=== PATIENT | female | born 1990 | race Caucasian/White ===

== ENCOUNTER 2016-09-20 18:28 | Emergency (ER) | payer BC ==
[2016-09-20] MEDS ORDERED: IV NORMAL SALINE 1,000ML 1,000 ML IV SCH (18:56)
[2016-09-20] MEDS ORDERED: 0.9 % SODIUM CHLORIDE 10 ML DISP.SYRIN. IV PRN (19:00)
[2016-09-20] MEDS ORDERED: ONDANSETRON PF 4 MG/2 ML VIAL. IV ONE (19:00)
[2016-09-20] MEDS ORDERED: HYDROmorphone PF 1 MG/ML DISP.SYRIN IV/SQ PRN (19:00)
--- NOTE | 2016-09-20 19:11 | PHYS DOC ---
Past History Additional Past Medical Histor: recurrent UTIs Past Surgical History: Cholecystectomy Smoking: Non-smoker Alcohol Use: Occasionally Drug Use: None Adult General Chief Complaint Chief Complaint: ABDOMINAL PAIN [facility] HPI This is a pleasant 26-year-old female G4 P 3013 who is 3 weeks by last menstrual period presenting with right lower quadrant right flank pain that began 2 days ago. Patient was in her normal state of health when she began having some crampy fullness in the right lower quadrant of abdomen described as a pressure with radiation from the flank to the lower groin. She has had a history of UTIs are currently since she was a child has had prior cystoscopy as well as IVP evaluations in the past. Her last UTI was several months ago. She has on no antibiotics at this time. She describes the pain as crampy about a 5- 10 with no change with bowel movements. She thought she was constipated and attempted to take lyic-ktv-vacrkif MiraLAX to help with her symptoms but that improved. She's had low-grade subjective fevers chills and decreased appetite. Patient also admits to no trauma no falls or sick contacts. Patient's pain is different in that she has no dysuria urgency or frequency but she said the pain is now radiating to the lower back on the right side. After doing some research she is worried she might have appendicitis versus a kidney infection. Pain presently is a 7 of 10 she's been nauseated but has not vomited. Review of Systems Review of Systems Constitutional: As the complaint of fevers and chills Eyes: Denies change in visual acuity, redness, or eye pain [] HENT: Denies nasal congestion or sore throat [] Respiratory: Denies cough or shortness of breath [] Cardiovascular: No additional information not addressed in HPI [] GI: As the complaint of abdominal pain with nausea without vomiting bloody stools or diarrhea [] : Denies dysuria or hematuria [] Musculoskeletal: As the complaint of lower back pain on the right Integument: Denies rash or skin lesions [] Neurologic: Denies headache, focal weakness or sensory changes [] Endocrine: Denies polyuria or polydipsia [] Current Medications Current Medications Current Medications Medications (Trade) Dose Ordered Sig/Amanuel Start Time Stop Time Status Last Admin Dose Admin Hydromorphone HCl (Dilaudid) 1 mg PRN Q15MIN PRN 09/20/16 19:00 09/21/16 18:59 Info (Do NOT chart on this entry -- for MONITORING) 1 each PRN DAILY PRN 09/20/16 19:15 09/22/16 19:14 Iohexol (Omnipaque 300 Mg/ml) 75 ml 1X ONCE 09/20/16 19:15 09/20/16 19:16 Ondansetron HCl (Zofran) 4 mg 1X ONCE 09/20/16 19:00 09/20/16 19:07 DC Sodium Chloride (Normal Saline Flush) 10 ml QSHIFT PRN 09/20/16 19:00 Allergies Allergies Allergies Coded Allergies Type Severity Reaction Last Updated Verified amoxicillin Allergy Unknown 09/20/16 Yes doxycycline Allergy Unknown 09/20/16 Yes sumatriptan Allergy Unknown 09/20/16 Yes Physical Exam Physical Exam Constitutional: Well developed, well nourished, patient uncomfortable but in no acute distress HENT: Normocephalic, atraumatic, bilateral external ears normal, oropharynx moist, no oral exudates, nose normal. [] Eyes: PERRLA, EOMI, conjunctiva normal, no discharge. [] Neck: Normal range of motion, no tenderness, supple, no stridor. [] Cardiovascular:Heart rate regular rhythm, no murmur [] Lungs & Thorax: Bilateral breath sounds clear to auscultation [] Abdomen: Bowel sounds present tenderness in the right lower quadrant with mild McBurney's point tenderness to palpation negative 's no Almaraz Greco sign no focal tenderness to the epigastrium or the left lower quadrant. Skin: Warm, dry, no erythema, no rash. [] Back: No tenderness, mild CVA tenderness on the right Extremities: No tenderness, no cyanosis, no clubbing, ROM intact, no edema. [] Neurologic: Alert and oriented X 3, normal motor function, normal sensory function, no focal deficits noted. [] Psychologic: Affect normal, judgement normal, mood normal. [] Current Patient Data Vital Signs Vital Sign - Last 24 Hours 09/20/16 19:47 Resp 20 Pulse Ox 98 O2 Delivery Room Air Lab Results Laboratory Tests Test 09/20/16 18:55 09/20/16 19:10 09/20/16 19:15 Urine Collection Type Unknown Urine Color Yellow Urine Clarity Turbid Urine pH 8.0 Urine Specific [place] 1.020 Urine Protein >100 mg/dl (NEG-TRACE) Urine Glucose (UA) Neg mg/dL (NEG) Urine Ketones (Stick) Neg mg/dL (NEG) Urine Blood Large (NEG) Urine Nitrite Neg (NEG) Urine Bilirubin Neg (NEG) Urine Urobilinogen Dipstick 0.2 mg/dL (0.2 mg/dL) Urine Leukocyte Esterase Large (NEG) Urine RBC 6-10 /HPF (0-2) Urine WBC >40 /HPF (0-4) Urine Squamous Epithelial Cells Mod /LPF Urine Bacteria Few /HPF (0-FEW) White Blood Count 11.0 x10^3/uL (4.0-11.0) Red Blood Count 4.73 x10^6/uL (3.50-5.40) Hemoglobin 13.2 g/dL (12.0-15.5) Hematocrit 39.5 % (36.0-47.0) Mean Corpuscular Volume 84 fL (79-100) Mean Corpuscular Hemoglobin 28 pg (25-35) Mean Corpuscular Hemoglobin Concent 33 g/dL (31-37) Red Cell Distribution Width 13.8 % (11.5-14.5) Platelet Count 179 x10^3/uL (140-400) Neutrophils (%) (Auto) 75 % (31-73) H Lymphocytes (%) (Auto) 17 % (24-48) L Monocytes (%) (Auto) 8 % (0-9) Eosinophils (%) (Auto) 0 % (0-3) Basophils (%) (Auto) 0 % (0-3) Neutrophils # (Auto) 8.3 x10^3uL (1.8-7.7) H Lymphocytes # (Auto) 1.9 x10^3/uL (1.0-4.8) Monocytes # (Auto) 0.8 x10^3/uL (0.0-1.1) Eosinophils # (Auto) 0.0 x10^3/uL (0.0-0.7) Basophils # (Auto) 0.0 x10^3/uL (0.0-0.2) Sodium Level 143 mmol/L (136-145) Potassium Level 3.5 mmol/L (3.5-5.1) Chloride Level 104 mmol/L (98-107) Carbon Dioxide Level 29 mmol/L (21-32) Anion Gap 10 (6-14) Blood Urea Nitrogen 14 mg/dL (7-20) Creatinine 0.9 mg/dL (0.6-1.0) Estimated GFR (Cockcroft-Gault) 74.6 BUN/Creatinine Ratio 16 (6-20) Glucose Level 80 mg/dL (70-99) Calcium Level 8.4 mg/dL (8.5-10.1) L Total Bilirubin 0.2 mg/dL (0.2-1.0) Aspartate Amino Transferase (AST) 12 U/L (15-37) L Alanine Aminotransferase (ALT) 14 U/L (14-59) Alkaline Phosphatase 42 U/L (46-116) L Total Protein 7.7 g/dL (6.4-8.2) Albumin 3.7 g/dL (3.4-5.0) Albumin/Globulin Ratio 0.9 (1.0-1.7) L Lipase 117 U/L (73-393) POC Urine HCG, Qualitative hcg negative (Negative) EKG EKG [] Radiology/Procedures Radiology/Procedures [] [address] [place] [id number] IMAGING REPORT Signed PATIENT: SLICK GUARDADO ACCOUNT: [id number] : 1990 LOCATION: ER AGE: 26 SEX: F EXAM STATUS: REG ER ORD. PHYSICIAN: GARCIA DELGADILLO MD REASON: right lower quadrant abdominal pain PROCEDURE: CT ABD PELV W/ IV CONTRST ONLY CT abdomen and pelvis with contrast History: Right lower quadrant abdomen pain, constipation x 2 days. Hx: Cholecystectomy. Contrast: 75 cc Omnipaque 300. Technique: After the administration of intravenous contrast, CT imaging was performed of the abdomen and pelvis. No oral contrast was given as per request. Multiplanar images are reviewed. Exposure: One or more of the following individualized dose reduction techniques were utilized for this examination: 1. Automated exposure control 2. Adjustment of the mA and/or kV according to patient size 3. Use of iterative reconstruction technique. Comparison: None Findings: There is no significant abnormality of the visualized lung bases. There is no significant abnormality of the liver, spleen, pancreas, adrenal glands. Both kidneys enhance without hydronephrosis. There has been cholecystectomy. Accurate evaluation of bowel is limited without oral contrast. No free air is identified. There is retained stool greatest of the right and transverse colon. Small bowel is not considered significantly dilated. There is IUD present. Normal caliber appendix is visualized without adjacent inflammatory-type change, mild hyperdensity in the lumen more likely due to hyperdense stool than appendicolith. There are 2 hypodense foci with peripheral enhancement of the right adnexal region, one of 2 cm and the other up to 1.9 cm in size. This is adjacent to other likely mild free fluid or cyst, also mild dependent free fluid more eccentric in the dependent right pelvis. There is also some wall enhancement of adjacent small bowel in the more central pelvis. There is mild wall prominence of the urinary bladder. Impression: 1. There is no CT evidence of acute appendicitis. 2. There are 2 foci of abnormal hypodensity with peripheral enhancement of the right adnexal region. These could be due to partially collapsed or involuting cysts unless suspicion for tubo-ovarian abscesses, adjacent mild free fluid extending posteriorly into the right pelvis. There is also some relative enhancement of adjacent small bowel torres in the more central pelvis. Underlying pelvic inflammatory disease would be in the differential possibilities. There is also mild prominence of the torres of the urinary bladder, nonspecific and could be related to incomplete distention unless suspicion for cystitis. 3. There is retained stool greatest of the right colon. Electronically signed by: Pepe Narayanan MD (09/20/2016 7:46 PM) DICTATED AND SIGNED BY: PEPE NARAYANAN MD DATE: 09/20/161937 CC: GARCIA DELGADILLO MD; VITALY MORA MD ~ Course & Med Decision Making Course & Med Decision Making Pertinent Labs and Imaging studies reviewed. (See chart for details). Nursing notes, vital signs, laboratory work as well as history and physical on secondary physical exam patient feels markedly improved we discussed possible diagnosis of UTI versus subclinical pyelonephritis given subjective fevers and flank pain. CT scan does not show any definite signs of appendicitis, small bowel section, diverticulitis, there is a small ovarian cyst there is no history consistent with PID or to ovarian abscess no history of sexual transmitted diseases in the past no discharge. Patient has had no pelvic pain or trauma. I would advise follow-up with her care physician with referral to your return checker to continue to evaluate her structure as this may be continuing to cause problems in the future. At this juncture I will place her on antibiotics a fluoroquinolone along with Pyridium pain medications nausea medications and close follow-up. Impression: UTI, subclinical pyelonephritis, ovarian cyst cyst, abdominal pain objective fever. Disposition: Discharged with appropriate antibiotics and supportive medications PCP follow-up in 4872 hours. [] Dragon Disclaimer Dragon Disclaimer This chart was dictated in whole or in part using Voice Recognition software in a busy, high-work load, and often noisy Emergency Department environment. It may contain unintended and wholly unrecognized errors or omissions. Departure Departure: Impression: Primary Impression: Abdominal pain Additional Impressions: Ovarian cyst Urinary tract infection Disposition: HOME, SELF-CARE Condition: IMPROVED Referrals: VITALY MORA MD (PCP) Patient Instructions: Abdominal Pain (Nonspecific), Ovarian Cyst, Urinary Tract Infection Additional Instructions: This return for any new or increasing symptoms, or if you have any questions or concerns. I would advise that you follow-up with her primary care doctor in the next 12-24 hours if symptoms continue despite treatment. There is no evidence evidence of appendicitis at this time but this is a disease that can develop at any time Soviet localized pain in the right lower quadrant continued fevers and chills please return for reevaluation. Scripts Ondansetron (ZOFRAN ODT) 8 Mg Tab.rapdis 8 MG PO BID for 5 Days Prov: GARCIA DELGADILLO MD 09/20/16 Phenazopyridine Hcl (PYRIDIUM) 200 Mg Tablet 200 MG PO TID for 5 Days, #15 TAB Prov: GARCIA DELGADILLO MD 09/20/16 Hydrocodone Bit/Acetaminophen (HYDROCODONE-APAP 5-325 ) 1 Each Tablet 1 TAB PO PRN Q6HRS Y for PAIN for 5 Days, #12 TAB 0 Refills Prov: GARCIA DELGADILLO MD 09/20/16 Nitrofurantoin Monohyd/M-Cryst (MACROBID 100 MG CAPSULE) 100 Mg Capsule 1 CAP PO BID, #20 CAP Prov: GARCIA DELGADILLO MD 09/20/16 Problem Qualifiers GARCIA DELGADILLO MD September 20, 2016 19:11
[2016-09-20] MEDS ORDERED: CONTRAST GIVEN MC PRN (19:15)
[2016-09-20] MEDS ORDERED: IOHEXOL 300 MG/ML 75 ML VIAL. IV ONE (19:15)
[2016-09-20 19:33] LABS: BASO % 0 % (0-3); EOS % 0 % (0-3); HEMATOCRIT 39.5 % (36.0-47.0); HEMOGLOBIN 13.2 g/dL (12.0-15.5); LYMPH # 1.9 x10^3/uL (1.0-4.8); LYMPH % 17 % (24-48); MEAN CORPUSCULAR HEMOGLOBIN 28 pg (25-35); MEAN CORPUSCULAR HGB CONC 33 g/dL (31-37); MEAN CORPUSCULAR VOLUME 84 fL (79-100); MONO # 0.8 x10^3/uL (0.0-1.1); MONO % 8 % (0-9); NEUT # 8.3 x10^3uL (1.8-7.7); NEUT % 75 % (31-73); PLATELET COUNT 179 x10^3/uL (140-400); RED BLOOD COUNT 4.73 x10^6/uL (3.50-5.40); RED CELL DISTRIBUTION WIDTH 13.8 % (11.5-14.5)
[2016-09-20 19:41] LABS: BILIRUBIN,URINE NEG (NEG); CLARITY,URINE TURBID; COLOR,URINE YELLOW; GLUCOSE,URINE NEG (NEG); NITRITE,URINE NEG (NEG); UROBILINOGEN,URINE 0.2 mg/dL (0.2 mg/dL)
[2016-09-20 19:43] LABS: BACTERIA,URINE FEW /HPF (0-FEW); SQUAMOUS EPITHELIAL CELL,UR MOD /LPF; WBC,URINE >40 /HPF (0-4)
[2016-09-20 19:45] LABS: ALBUMIN 3.7 g/dL (3.4-5.0); ALBUMIN/GLOBULIN RATIO 0.9 (1.0-1.7); CALCIUM 8.4 mg/dL (8.5-10.1); CREATININE 0.9 mg/dL (0.6-1.0); GFR 74.6; POTASSIUM 3.5 mmol/L (3.5-5.1); TOTAL BILIRUBIN 0.2 mg/dL (0.2-1.0); TOTAL PROTEIN 7.7 g/dL (6.4-8.2)
--- NOTE | 2016-09-20 19:49 | RAD ---
CT abdomen and pelvis with contrast History: Right lower quadrant abdomen pain, constipation x 2 days. Hx: Cholecystectomy. Contrast: 75 cc Omnipaque 300. Technique: After the administration of intravenous contrast, CT imaging was performed of the abdomen and pelvis. No oral contrast was given as per request. Multiplanar images are reviewed. Exposure: One or more of the following individualized dose reduction techniques were utilized for this examination: 1. Automated exposure control 2. Adjustment of the mA and/or kV according to patient size 3. Use of iterative reconstruction technique. Comparison: None Findings: There is no significant abnormality of the visualized lung bases. There is no significant abnormality of the liver, spleen, pancreas, adrenal glands. Both kidneys enhance without hydronephrosis. There has been cholecystectomy. Accurate evaluation of bowel is limited without oral contrast. No free air is identified. There is retained stool greatest of the right and transverse colon. Small bowel is not considered significantly dilated. There is IUD present. Normal caliber appendix is visualized without adjacent inflammatory-type change, mild hyperdensity in the lumen more likely due to hyperdense stool than appendicolith. There are 2 hypodense foci with peripheral enhancement of the right adnexal region, one of 2 cm and the other up to 1.9 cm in size. This is adjacent to other likely mild free fluid or cyst, also mild dependent free fluid more eccentric in the dependent right pelvis. There is also some wall enhancement of adjacent small bowel in the more central pelvis. There is mild wall prominence of the urinary bladder. Impression: 1. There is no CT evidence of acute appendicitis. 2. There are 2 foci of abnormal hypodensity with peripheral enhancement of the right adnexal region. These could be due to partially collapsed or involuting cysts unless suspicion for tubo-ovarian abscesses, adjacent mild free fluid extending posteriorly into the right pelvis. There is also some relative enhancement of adjacent small bowel torres in the more central pelvis. Underlying pelvic inflammatory disease would be in the differential possibilities. There is also mild prominence of the torres of the urinary bladder, nonspecific and could be related to incomplete distention unless suspicion for cystitis. 3. There is retained stool greatest of the right colon. Electronically signed by: Pio Wren MD (09/20/2016 7:46 PM)
[2016-09-20] MEDS ORDERED: PHEN-318 PO (20:02)
[2016-09-20] MEDS ORDERED: ONDA8TAB12 PO (20:02)
[2016-09-20] MEDS ORDERED: HYDR-2758 PO (20:02)
[2016-09-20] MEDS ORDERED: NITR100C62 PO (20:02)
[2016-09-20] MEDS ORDERED: NITROFURANTOIN MONOHYD/M-CRYST 100 MG CAPSULE. PO ONE ×2 (20:09→20:15)
[2016-09-20 20:17] VITALS: BP 112/57
== END 2016-09-20 20:17 | disposition home or self-care (01) ==
LOC: ER 18:28
DX: N83.201 Unspecified ovarian cyst, right side (principal); N39.0 Urinary tract infection, site not specified; N12 Tubulo-interstitial nephritis, not specified as acute or chronic; Z88.1 Allergy status to other antibiotic agents; Z87.440 Personal history of urinary (tract) infections
CPT/HCPCS: 36415; 74177; 80053; 81001; 83690; 84703; 85027; 87086; 96374; 96375; 99285; J1170; J2405; Q9967; 81025; J7030

== ENCOUNTER 2016-09-20 21:06 | Emergency (ER) | payer BC ==
[~2016-09-20 21:06] MED LIST: HYDR-2758 PO; NITR100C62 PO; ONDA8TAB12 PO; PHEN-318 PO
[2016-09-20] MEDS ORDERED: IV NORMAL SALINE 1,000ML 1,000 ML IV SCH (21:07)
[2016-09-20] MEDS: HYDROmorphone PF 1 MG/ML DISP.SYRIN IV/SQ PRN ×2 (21:15→23:45)
[2016-09-20] MEDS ORDERED: 0.9 % SODIUM CHLORIDE 10 ML DISP.SYRIN. IV PRN (21:15)
[2016-09-20] MEDS ORDERED: ONDANSETRON PF 4 MG/2 ML VIAL. IV ONE (21:30)
[2016-09-20] MEDS ORDERED: LORazepam 2 MG/ML VIAL IV ONE (21:30)
--- NOTE | 2016-09-20 21:31 | PHYS DOC ---
Past History Past Medical History: UTI, Other Additional Past Medical Histor: recurrent UTIs Past Surgical History: Cholecystectomy Smoking: Non-smoker Alcohol Use: Occasionally Drug Use: None Adult General Chief Complaint Chief Complaint: abdominal pain [facility] HPI Patient is a pleasant 26-year-old female who was just in our department no more than about an hour ago for an evaluation of right lower quadrant right flank abdominal pain. During her evaluation is determined that she has a small ovarian cyst on the right side some mildly fluid in the abdomen and likely a cystitis. There is no obvious evidence of appendicitis, bowel perforation, bowel obstruction, kidney stone with hydronephrosis or diverticulitis. Patient was feeling markedly better upon release from the emergency department did call about 10 minutes prior to arrival telling us that her pain had increased and localized to the right flank. I asked him to return to ensure that we could evaluate her cyst to ensure that she did not have ovarian torsion. Pain did come in waves described as sharp and stabbing with radiation to the right lower quadrant as before. 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 Pain is presently in 8 of 10. Review of Systems Review of Systems Constitutional: Denies fever or chills [] Eyes: Denies change in visual acuity, redness, or eye pain [] HENT: Denies nasal congestion or sore throat [] Respiratory: Denies cough or shortness of breath [] Cardiovascular: No additional information not addressed in HPI [] GI: Major complaint of abdominal pain with nausea localized to the right lower quadrant : Denies dysuria or hematuria [] Musculoskeletal: Denies back pain or joint pain [] Integument: Denies rash or skin lesions [] Neurologic: Denies headache, focal weakness or sensory changes [] Endocrine: Denies polyuria or polydipsia [] Allergies Allergies Allergies Coded Allergies Type Severity Reaction Last Updated Verified amoxicillin Allergy Unknown 09/20/16 Yes doxycycline Allergy Unknown 09/20/16 Yes naproxen Allergy Unknown 09/20/16 Yes sumatriptan Allergy Unknown 09/20/16 Yes Physical Exam Physical Exam Constitutional: Well developed, well nourished, he is very anxious but nontoxic patient crying HENT: Normocephalic, atraumatic, bilateral external ears normal, oropharynx moist, no oral exudates, nose normal. [] Eyes: PERRLA, EOMI, conjunctiva normal, no discharge. [] Neck: Normal range of motion, no tenderness, supple, no stridor. [] Cardiovascular:Heart rate regular rhythm, no murmur [] Lungs & Thorax: Bilateral breath sounds clear to auscultation [] Abdomen: Tender still on right flank right lower quadrant as beforehand. There is voluntary guarding without rebound or organomegaly. There is no 's sign and examined is no Almaraz Greco's sign. Skin: Warm, dry, no erythema, no rash. [] Back: No tenderness, no CVA tenderness. [] Extremities: No tenderness, no cyanosis, no clubbing, ROM intact, no edema. [] Neurologic: Alert and oriented X 3, normal motor function, normal sensory function, no focal deficits noted. [] Psychologic: She is upset and anxious secondary to pain. EKG EKG [] Radiology/Procedures Radiology/Procedures [] Signed PATIENT: SLICK GUARDADO ACCOUNT: [id number] : 1990 LOCATION: ER AGE: 26 SEX: F EXAM STATUS: REG ER ORD. PHYSICIAN: GARCIA DELGADILLO MD REASON: rule out ovarian torsion PROCEDURE: US PELVIS W/TV Pelvic and transvaginal ultrasound HISTORY: Rule out ovarian torsion, sharp pelvic pain COMPARISON: None FINDINGS: Multiple transabdominal sonographic images of the pelvis are submitted. Right ovary is estimated at 3.4 x 2.7 x 2.8 cm, normal color flow. Left ovary measured 2.3 x 2.8 x 2.2 cm with normal color flow. There is IUD present. 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 Superior margin of the IUD appears more distally located than typically seen although on CT performed the same time, does not go past the uterine wall. Transvaginal ultrasound: Multiple transvaginal sonographic images of the pelvis are submitted. There is an IUD, apparently some mild fluid along left aspect of the IUD and tip of the IUD somewhat more distally seen than typically expected although does not appear to traverse the uterine wall. There is moderate quantity of free fluid in the right adnexal region. There is a focus of hypoechogenicity of the right uterus measuring in maximal dimension up to 1.5 cm with the internal echoes present. There is another focus of hypoechogenicity of the right ovary with internal echoes also on the order of 1.5 cm. There is normal color-flow of the right ovary. There is normal color flow of the left ovary, few small follicles present. IMPRESSION: 1. There is IUD in retroverted, septate uterus, mild fluid along the left aspect of the IUD. Tip of the IUD is located closer to the uterine fundus than typically seen although does not appear to traverse the uterine wall. 2. There is moderate free fluid in the right adnexal region, a couple of foci of hypoechogenicity with internal echoes which may be due to partially collapsed cysts. Electronically signed by: Pepe Narayanan MD (09/20/2016 11:11 PM) DICTATED AND SIGNED BY: PEPE NARAYANAN MD DATE: 09/20/167 CC: GARCIA DELGADILLO MD; VITALY MORA MD ~ Course & Med Decision Making Course & Med Decision Making Pertinent Labs and Imaging studies reviewed. (See chart for details) I have reviewed patient's chart, patient's nursing notes, patient H&H and vital signs all within reasonable limits again identified UTI with ovarian cyst on the right that is partially collapsed likely causing little hemorrhage in the abdomen with moderate free fluid noted patient is been hemolyticus table pain is well-controlled IV medications on her ultrasound that she does not have torsion and good blood flow to both ovaries at this time patient does not demonstrate signs of an ectopic . 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 At this point patient given report about findings will need to follow-up with her [employer]. It is likely that she may need to have the IUD removed and a repeat H&H and repeat ultrasound if her abdominal pain continues. Patient and family were offered admission to the hospital for IV narcotics and fluids but family elected to go home with follow-up tomorrow with the primary care doctor. : Impression: Abdominal pain, ovarian cyst, UTI, bicornate uterus Disposition PCP follow-up 24 hours. Precautions given [] Dragon Disclaimer Dragon Disclaimer This chart was dictated in whole or in part using Voice Recognition software in a busy, high-work load, and often noisy Emergency Department environment. It may contain unintended and wholly unrecognized errors or omissions. Departure Departure: Impression: Primary Impression: Abdominal pain Additional Impression: Ovarian cyst Disposition: 01 HOME, SELF-CARE Condition: IMPROVED Referrals: VITALY MORA MD (PCP) Patient Instructions: Abdominal Pain, Ovarian Cyst Additional Instructions: This follow-up with her [employer] or PCP in the morning especially if symptoms continue. Advise that she return here immediately for admission to the hospital if her pain is increased. If you feel any fever, lightheaded dizziness, or other symptoms that are concerning to you. Problem Qualifiers GARCIA DELGADILLO MD September 20, 2016 21:31
--- NOTE | 2016-09-20 23:13 | RAD ---
Pelvic and transvaginal ultrasound HISTORY: Rule out ovarian torsion, sharp pelvic pain COMPARISON: None FINDINGS: Multiple transabdominal sonographic images of the pelvis are submitted. Right ovary is estimated at 3.4 x 2.7 x 2.8 cm, normal color flow. Left ovary measured 2.3 x 2.8 x 2.2 cm with normal color flow. There is IUD present. 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 Superior margin of the IUD appears more distally located than typically seen although on CT performed the same time, does not go past the uterine wall. Transvaginal ultrasound: Multiple transvaginal sonographic images of the pelvis are submitted. There is an IUD, apparently some mild fluid along left aspect of the IUD and tip of the IUD somewhat more distally seen than typically expected although does not appear to traverse the uterine wall. There is moderate quantity of free fluid in the right adnexal region. There is a focus of hypoechogenicity of the right uterus measuring in maximal dimension up to 1.5 cm with the internal echoes present. There is another focus of hypoechogenicity of the right ovary with internal echoes also on the order of 1.5 cm. There is normal color-flow of the right ovary. There is normal color flow of the left ovary, few small follicles present. IMPRESSION: 1. There is IUD in retroverted, septate uterus, mild fluid along the left aspect of the IUD. Tip of the IUD is located closer to the uterine fundus than typically seen although does not appear to traverse the uterine wall. 2. There is moderate free fluid in the right adnexal region, a couple of foci of hypoechogenicity with internal echoes which may be due to partially collapsed cysts. Electronically signed by: Pio Wren MD (09/20/2016 11:11 PM)
[2016-09-20 23:43] VITALS: BP 121/71
== END 2016-09-20 23:47 | disposition home or self-care (01) ==
LOC: ER 21:06
DX: N83.201 Unspecified ovarian cyst, right side (principal); N39.0 Urinary tract infection, site not specified; Z90.49 Acquired absence of other specified parts of digestive tract; Z88.1 Allergy status to other antibiotic agents; Z88.6 Allergy status to analgesic agent
CPT/HCPCS: 76830; 76856; 96361; 96374; 96375; 96376; 99284; J1170; J2060; J2405; J7030

== ENCOUNTER → 2019-01-09 | Outpatient (CLI) | payer BC ==
[~2019-01-09] MED LIST changes: +HYDR-2155 PO; -HYDR-2758 PO
--- NOTE | 2019-01-09 16:59 | RAD ---
RENAL COMPLETE BILATERAL History: Urinary tract infection, family history of bladder cancer Comparison: None. Findings: Multiple sonographic images of the kidneys and retroperitoneal structures are submitted. Right kidney measured 10.6 x 6.1 x 3.6 cm. Left kidney measured 11.3 x 4.5 x 5.8 cm. There is no hydronephrosis of either kidney. Abdominal aortic caliber is within normal limits up to 1.9 cm. There is segmental visualization of the inferior vena cava. Urinary bladder morphology is within normal limits, ureteral jets seen bilaterally. Estimated urinary bladder volume was 45 mL. Impression: 1. No significant abnormality is demonstrated. Electronically signed by: Pio Wren MD (01/09/2019 4:55 PM) [facility]
== END | disposition home or self-care (01) ==
LOC: US 12:01
PROVIDERS: ATTEND Family Medicine
DX: N39.0 Urinary tract infection, site not specified (principal)
CPT/HCPCS: 76770

== ENCOUNTER 2020-04-09 18:23 | Emergency (ER) | payer BC ==
[~2020-04-09] VITALS: Ht 165.1 cm; Wt 64.2 kg
[2020-04-09 19:10] VITALS: BP 120/72
[2020-04-09] MEDS ORDERED: IV NORMAL SALINE 1,000ML 1,000 ML IV ONE (19:15)
[2020-04-09] MEDS ORDERED: IOHEXOL 300 MG/ML 75 ML VIAL. IV ONE (19:30)
[2020-04-09 19:45] LABS: BASO % 0 % (0-3); EOS # 0.2 x10^3/uL (0.0-0.7); EOS % 2 % (0-3); HEMOGLOBIN 12.6 g/dL (12.0-15.5); LYMPH # 2.1 x10^3/uL (1.0-4.8); LYMPH % 19 % (24-48); MEAN CORPUSCULAR HEMOGLOBIN 28 pg (25-35); MEAN CORPUSCULAR HGB CONC 32 g/dL (31-37); MEAN CORPUSCULAR VOLUME 87 fL (79-100); MONO # 0.8 x10^3/uL (0.0-1.1); MONO % 7 % (0-9); NEUT % 72 % (31-73); PLATELET COUNT 245 x10^3/uL (140-400); RED BLOOD COUNT 4.49 x10^6/uL (3.50-5.40); RED CELL DISTRIBUTION WIDTH 14.5 % (11.5-14.5)
[2020-04-09 19:54] LABS: CALCIUM 8.4 mg/dL (8.5-10.1); CREATININE 0.8 mg/dL (0.6-1.0); GFR 83.1; POTASSIUM 3.3 mmol/L (3.5-5.1)
[2020-04-09 20:00] LABS: BACTERIA,URINE FEW /HPF (0-FEW); BILIRUBIN,URINE NEG (NEG); CLARITY,URINE HAZY; COLOR,URINE YELLOW; GLUCOSE,URINE NEG (NEG); NITRITE,URINE NEG (NEG); RBC,URINE OCC /HPF (0-2); SQUAMOUS EPITHELIAL CELL,UR FEW /LPF; UROBILINOGEN,URINE 0.2 mg/dL (0.2 mg/dL)
[2020-04-09 20:00] LABS: ALBUMIN 3.4 g/dL (3.4-5.0); TOTAL BILIRUBIN 0.2 mg/dL (0.2-1.0); TOTAL PROTEIN 6.7 g/dL (6.4-8.2)
--- NOTE | 2020-04-09 20:11 | RAD ---
EXAM: CT ABDOMEN/PELVIS WITH CONTRAST. HISTORY: Lower abdominal pain. TECHNIQUE: Computed tomography of the abdomen and pelvis was performed after the intravenous administ ration of iodinated contrast. One or more of the following individualized dose reduction techniques w ere utilized for this examination: 1. Automated exposure control. 2. Adjustment of the mA and/or kV according to patient size. 3. Use of iterative reconstruction technique. COMPARISON: 09/20/2016. FINDINGS: Lung windows through the visualized portions of the bases reveal mild atelectasis. Bilatera l breast implants are noted. Bone windows reveal no suspicious lesions. There is a 5 mm cyst in hepatic segment 6. There is mild intrahepatic biliary dilatation without extr ahepatic biliary dilatation. Hypoattenuation along the falciform ligament is likely a normal variant perfusion related phenomenon. The gallbladder is surgically absent. The pancreas, adrenal glands and spleen are unremarkable. There is a 3 mm calculus in the right renal lower pole. There are no pathologically enlarged lymph nodes. An intrauterine device is in expected position. The bladder is decompressed but demonstrates mild wall thickening. There is diffuse wall thickening from the rectum through the ascending colon. No small bowel wall thi ckening is identified. There are small appendicoliths within the appendiceal tip without evidence of inflammation. IMPRESSION: 1. Diffuse colonic wall thickening. Inflammatory bowel disease or infectious colitis are most likely given this distribution. 2. Nonfocal bladder wall thickening suggests chronic outlet obstruction or inflammation. Correlate wi urinalysis. 3. Mild intrahepatic biliary dilatation status post cholecystectomy. Correlate with liver function te sts to assess significance. Electronically signed by: Gerald Albright MD (04/09/2020 8:08 PM) [facility]
--- NOTE | 2020-04-09 20:17 | PHYS DOC ---
Past History Past Medical History: UTI Additional Past Medical Histor: recurrent UTIs Past Surgical History: Cholecystectomy Smoking: Non-smoker Alcohol Use: Occasionally Drug Use: None Adult General Chief Complaint Chief Complaint: DIARRHEA HPI HPI Patient is a 30-year-old female presents emergency department complaining of ongoing diarrhea for the past month. Patient states she has seen her doctor several times, was started on dicyclomine for irritable bowel but has not noticed any improvement, patient states she has had her stools obtain cultures checked she was negative for C. difficile, ova and parasites on April 02, 2020. Patient states she continues to have diarrhea and fullness feeling in her abdomen along with lower abdominal cramping. Patient denies any fever or chills, denies nausea or vomiting or constipation. Patient states that her last menstrual cycle was 03/12/2020. Patient states that she has a GI consult but has not seen GI specialty yet. Patient denies any other physical illness or physical symptoms. Review of Systems Review of Systems 14 body systems of review of systems have been reviewed. See HPI for pertinent positives and negative responses, otherwise all other systems are negative, nonpertinent or noncontributory. Current Medications Current Medications Current Medications Medications (Trade) Dose Ordered Sig/Amanuel Start Time Stop Time Status Last Admin Dose Admin Iohexol (Omnipaque 300 Mg/ml) 75 ml 1X ONCE 04/09/20 19:30 04/09/20 19:31 DC 04/09/20 19:36 75 ML Sodium Chloride 1,000 ml @ 1,000 mls/hr 1X ONCE 04/09/20 19:15 04/09/20 20:14 DC 04/09/20 19:25 1,000 MLS/HR Allergies Allergies Allergies Coded Allergies Type Severity Reaction Last Updated Verified amoxicillin Allergy Unknown 09/20/16 Yes doxycycline Allergy Unknown 09/20/16 Yes naproxen Allergy Unknown 09/20/16 Yes sumatriptan Allergy Unknown 09/20/16 Yes Physical Exam Physical Exam Constitutional: Well developed, well nourished, no acute distress, non-toxic appearance. HENT: Normocephalic, atraumatic, bilateral external ears normal, oropharynx moist, no oral exudates, nose normal. Eyes: PERRLA, EOMI, conjunctiva normal, no discharge. Neck: Normal range of motion, no tenderness, supple, no stridor. Cardiovascular:Heart rate regular rhythm, no murmur Lungs & Thorax: Bilateral breath sounds clear to auscultation Abdomen: Bowel sounds hyperactive consultation, soft, mild tenderness to left and right low abdomen to palpation, however negative psoas sign, negative sign, negative McBurney's point tenderness. Negative rebound tenderness, no masses, no pulsatile masses. Skin: Warm, dry, no erythema, no rash. Back: No tenderness, no CVA tenderness. Extremities: No tenderness, no cyanosis, no clubbing, ROM intact, no edema. Neurologic: Alert and oriented X 3, normal motor function, normal sensory function, no focal deficits noted. Psychologic: Affect normal, judgement normal, mood normal. Current Patient Data Vital Signs Vital Signs Date Time Temp Pulse Resp B/P (MAP) Pulse Ox O2 Delivery O2 Flow Rate FiO2 04/09/20 19:10 97.2 89 18 120/72 (88) 100 Room Air Lab Results Laboratory Tests Test 04/09/20 19:15 04/09/20 19:25 04/09/20 19:32 Urine Collection Type Unknown Urine Color Yellow Urine Clarity Hazy Urine pH 5.5 Urine Specific [place] 1.025 Urine Protein Neg Urine Glucose (UA) Neg mg/dL Urine Ketones (Stick) Trace mg/dL Urine Blood Neg Urine Nitrite Neg Urine Bilirubin Neg Urine Urobilinogen Dipstick 0.2 mg/dL Urine Leukocyte Esterase Neg Urine RBC Occ /HPF Urine WBC 1-4 /HPF Urine Squamous Epithelial Cells Few /LPF Urine Bacteria Few /HPF Urine Mucus Mod /LPF White Blood Count 11.0 x10^3/uL Red Blood Count 4.49 x10^6/uL Hemoglobin 12.6 g/dL Hematocrit 39.0 % Mean Corpuscular Volume 87 fL Mean Corpuscular Hemoglobin 28 pg Mean Corpuscular Hemoglobin Concent 32 g/dL Red Cell Distribution Width 14.5 % Platelet Count 245 x10^3/uL Neutrophils (%) (Auto) 72 % Lymphocytes (%) (Auto) 19 % Monocytes (%) (Auto) 7 % Eosinophils (%) (Auto) 2 % Basophils (%) (Auto) 0 % Neutrophils # (Auto) 8.0 x10^3uL Lymphocytes # (Auto) 2.1 x10^3/uL Monocytes # (Auto) 0.8 x10^3/uL Eosinophils # (Auto) 0.2 x10^3/uL Basophils # (Auto) 0.0 x10^3/uL Sodium Level 139 mmol/L Potassium Level 3.3 mmol/L Chloride Level 106 mmol/L Carbon Dioxide Level 25 mmol/L Anion Gap 8 Blood Urea Nitrogen 24 mg/dL Creatinine 0.8 mg/dL Estimated GFR (Cockcroft-Gault) 83.1 BUN/Creatinine Ratio 30 Glucose Level 80 mg/dL Lactic Acid Level 0.4 mmol/L Calcium Level 8.4 mg/dL Total Bilirubin 0.2 mg/dL Aspartate Amino Transf (AST/SGOT) 9 U/L Alanine Aminotransferase (ALT/SGPT) 17 U/L Alkaline Phosphatase 45 U/L Total Protein 6.7 g/dL Albumin 3.4 g/dL Albumin/Globulin Ratio 1.0 Lipase 115 U/L Bedside Urine HCG, Qualitative hcg negative Current Medications Medications (Trade) Dose Ordered Sig/Amanuel Route PRN Reason Start Time Stop Time Status Last Admin Dose Admin Sodium Chloride 1,000 ml @ 1,000 mls/hr 1X ONCE IV 04/09/20 19:15 04/09/20 20:14 DC 04/09/20 19:25 Iohexol (Omnipaque 300 Mg/ml) 75 ml 1X ONCE IV 04/09/20 19:30 04/09/20 19:31 DC 04/09/20 19:36 Ciprofloxacin Lactate 200 ml @ 200 mls/hr 1X ONCE IV 04/09/20 20:30 04/09/20 21:30 DC 04/09/20 20:34 Metronidazole 100 ml @ 100 mls/hr 1X ONCE IV 04/09/20 20:30 04/09/20 21:30 DC 04/09/20 20:43 Laboratory Tests Test 04/09/20 19:15 04/09/20 19:25 04/09/20 19:32 Urine Collection Type Unknown Urine Color Yellow Urine Clarity Hazy Urine pH 5.5 Urine Specific [place] 1.025 Urine Protein Neg (NEG-TRACE) Urine Glucose (UA) Neg mg/dL (NEG) Urine Ketones (Stick) Trace mg/dL (NEG) Urine Blood Neg (NEG) Urine Nitrite Neg (NEG) Urine Bilirubin Neg (NEG) Urine Urobilinogen Dipstick 0.2 mg/dL (0.2 mg/dL) Urine Leukocyte Esterase Neg (NEG) Urine RBC Occ /HPF (0-2) Urine WBC 1-4 /HPF (0-4) Urine Squamous Epithelial Cells Few /LPF Urine Bacteria Few /HPF (0-FEW) Urine Mucus Mod /LPF White Blood Count 11.0 x10^3/uL (4.0-11.0) Red Blood Count 4.49 x10^6/uL (3.50-5.40) Hemoglobin 12.6 g/dL (12.0-15.5) Hematocrit 39.0 % (36.0-47.0) Mean Corpuscular Volume 87 fL (79-100) Mean Corpuscular Hemoglobin 28 pg (25-35) Mean Corpuscular Hemoglobin Concent 32 g/dL (31-37) Red Cell Distribution Width 14.5 % (11.5-14.5) Platelet Count 245 x10^3/uL (140-400) Neutrophils (%) (Auto) 72 % (31-73) Lymphocytes (%) (Auto) 19 % (24-48) L Monocytes (%) (Auto) 7 % (0-9) Eosinophils (%) (Auto) 2 % (0-3) Basophils (%) (Auto) 0 % (0-3) Neutrophils # (Auto) 8.0 x10^3uL (1.8-7.7) H Lymphocytes # (Auto) 2.1 x10^3/uL (1.0-4.8) Monocytes # (Auto) 0.8 x10^3/uL (0.0-1.1) Eosinophils # (Auto) 0.2 x10^3/uL (0.0-0.7) Basophils # (Auto) 0.0 x10^3/uL (0.0-0.2) Sodium Level 139 mmol/L (136-145) Potassium Level 3.3 mmol/L (3.5-5.1) L Chloride Level 106 mmol/L (98-107) Carbon Dioxide Level 25 mmol/L (21-32) Anion Gap 8 (6-14) Blood Urea Nitrogen 24 mg/dL (7-20) H Creatinine 0.8 mg/dL (0.6-1.0) Estimated GFR (Cockcroft-Gault) 83.1 BUN/Creatinine Ratio 30 (6-20) H Glucose Level 80 mg/dL (70-99) Lactic Acid Level 0.4 mmol/L (0.4-2.0) Calcium Level 8.4 mg/dL (8.5-10.1) L Total Bilirubin 0.2 mg/dL (0.2-1.0) Aspartate Amino Transferase (AST) 9 U/L (15-37) L Alanine Aminotransferase (ALT) 17 U/L (14-59) Alkaline Phosphatase 45 U/L (46-116) L Total Protein 6.7 g/dL (6.4-8.2) Albumin 3.4 g/dL (3.4-5.0) Albumin/Globulin Ratio 1.0 (1.0-1.7) Lipase 115 U/L (73-393) POC Urine HCG, Qualitative hcg negative (Negative) EKG EKG [] Radiology/Procedures Radiology/Procedures STATUS: REG ER ORD. PHYSICIAN: MAGDALENE NEGRETE APRN REASON: Lower ABDOMEN PAIN. Hx: Cholecystectomy Omni 300 75cc PROCEDURE: CT ABD PELV W/ IV CONTRST ONLY EXAM: CT ABDOMEN/PELVIS WITH CONTRAST. HISTORY: Lower abdominal pain. TECHNIQUE: Computed tomography of the abdomen and pelvis was performed after the intravenous administration of iodinated contrast. One or more of the following individualized dose reduction techniques were utilized for this examination: 1. Automated exposure control. 2. Adjustment of the mA and/or kV according to patient size. 3. Use of iterative reconstruction technique. COMPARISON: 09/20/2016. FINDINGS: Lung windows through the visualized portions of the bases reveal mild atelectasis. Bilateral breast implants are noted. Bone windows reveal no susp icious lesions. There is a 5 mm cyst in hepatic segment 6. There is mild intrahepatic biliary dilatation without extrahepatic biliary dilatation. Hypoattenuation along the falciform ligament is likely a normal variant perfusion related phenomenon. The gallbladder is surgically absent. The pancreas, adrenal glands and spleen are unremarkable. There is a 3 mm calculus in the right renal lower pole. There are no pathologically enlarged lymph nodes. An intrauterine device is in expected position. The bladder is decompressed but demonstrates mild wall thickening. There is diffuse wall thickening from the rectum through the ascending colon. No small bowel wall thickening is identified. There are small appendicoliths within the appendiceal tip without evidence of inflammation. IMPRESSION: 1. Diffuse colonic wall thickening. Inflammatory bowel disease or infectious colitis are most likely given this distribution. 2. Nonfocal bladder wall thickening suggests chronic outlet obstruction or inflammation. Correlate with urinalysis. 3. Mild intrahepatic biliary dilatation status post cholecystectomy. Correlate with liver function tests to assess significance. Electronically signed by: Gerald Albright MD (04/09/2020 8:08 PM) [facility] DICTATED AND SIGNED BY: BERNARDO ALBRIGHT MD DATE: 04/09/202002 CC: MAGDALENE NEGRETE APRN; VITALY MORA MD ~MTH0 0 Heart Score Risk Factors: Risk Factors: DM, Current or recent (<one month) smoker, HTN, HLP, family history of CAD, obesity. Risk Scores: Risk Factors: DM, Current or recent (<one month) smoker, HTN, HLP, family history of CAD, obesity. Course & Med Decision Making Course & Med Decision Making Pertinent Labs and Imaging studies reviewed. (See chart for details) 30-year-old female presents emergency department complaint of diarrhea for several weeks. Patient is currently being worked up by her primary care physician and is waiting to see GI specialty. Patient had recent stool cultures done and were all negative per her statement. The patient's physical exam was only mildly concerning for abdominal infectious process, a CT was ordered abdomen pelvis with IV contrast, labs, urine was ordered. Pending result The patient was urine was not infected, she is not , patient's labs were unremarkable, patient did have a low potassium of 3.3, discussed with patient, patient states she does not like taking potassium pills, states that she will ea t higher potassium foods at home, patient states this is probably due to her diarrhea, reports that her doctor is following her potassium, and she does not wish to be treated today for that. Patient is mainly concerned if there is something else going on that might be causing her diarrhea. Awaiting CT results. CAT scan was mildly concerning for colitis. We will start Flagyl IV and plan to send home on Flagyl, discussed with ED attending Dr. Denney who recommended patient start on a quinolone, patient was given 400 mg of Cipro IV, and sent home with prescription for Cipro as well. Discussed with patient CT concerning for colitis, however mild thickening may be due to inflammatory bowel disease as patient's primary care physicians are currently working her up for. A stool sample for C. difficile was ordered during her ER stay, the patient did not produce a diarrhea stool during her ER stay. Patient gave verbal understanding of discharge home instructions, antibiotic use, return to ER precautions and concerns, patient is to continue using her Imodium for diarrhea as needed and directed. Patient had no further questions or concerns. Patient was discharged home without incident. Patient remained in a nontoxic appearance at discharge time. Dragon Disclaimer Dragon Disclaimer This electronic medical record was generated, in whole or in part, using a voice recognition dictation system. Departure Departure: Impression: Primary Impression: Colitis Additional Impression: Diarrhea Disposition: 01 DC HOME SELF CARE/HOMELESS Condition: IMPROVED Referrals: VITALY MORA MD (PCP) Patient Instructions: Colitis, Diarrhea Additional Instructions: You have been diagnosed with colitis today you have started your first dose of antibiotics IV, you have been given a prescription for both antibiotics, please take antibiotic prescriptions as directed, follow-up with your doctor tomorrow or the next day, make sure your doctor knows you are being treated for colitis. Please return to the emergency department for worsening symptoms or other concerns. Please continue to take your Imodium as directed for your diarrhea. EMERGENCY DEPARTMENT GENERAL DISCHARGE INSTRUCTIONS Thank you for coming to [facility] (ED) today and trusting us with you care. We trust that you had a positivie experience in our Emergency Department. If you wish to speak to the department management, you may call the director at [phone]. YOUR FOLLOW UP INSTRUCTIONS ARE FOLLOWS: 1. Do you have a private Doctor? If you do not have a private doctor, please ask for a resource list of physicians or clinics that may be able to assist you with follow up care. 2. The Emergency Physician has interpreted your x-rays. The X-Ray specialist will also review them. If there is a change in the findings, you will be notified in 48 hours when at all possible. 3. A lab test or culture has been done, your results will be reviewed and you will be notified if you need a change in treatment. ADDITIONAL INSTRUCTIONS AND INFORMATION: 1. Your care today has been supervised by a physician who is specially trained in emergency care. Many problems require more than one evaluation for a complete diagnosis and treatment. We recommend that you schedule your follow up appointment as recommended to ensure complete treatment of you illness or injury. If you are unable to obtain follow up care and continue to have a problem, or if your condition worsens, we recommend that you return to the ED. 2. We are not able to safely determine your condition over the phone nor are we able to give sound medical advice over the phone. For these safety reasons, if you call for medical advice we will ask you to come to the ED for further evaluation. 3. If you have any questions regarding these discharge instructions please call the ED at [phone]. SAFETY INFORMATION: In the interest of safety, wellness, and injury prevention; we encourage you to wear your sealbelt, if you smoke; quite smoking, and we encourage family to use a protective helmet for bicycling and other sporting events that present an increased risk for head injury. IF YOUR SYMPTOMS WORSEN OR NEW SYMPTOMS DEVELOP, OR YOU HAVE CONCERNS ABOUT YOUR CONDITION; OR IF YOUR CONDITION WORSENS WHILE YOU ARE WAITING FOR YOUR FOLLOW UP APPOINTMENT; EITHER CONTACT YOUR PRIMARY CARE DOCTOR, THE PHYSICIAN WHOSE NAME AND NUMBER YOU WERE GIVEN, OR RETURN TO THE ED IMMEDIATELY. Scripts Metronidazole (FLAGYL) 500 Mg Tablet 500 MG PO TID for COLITIS for 10 Days, #30 TAB 0 Refills Prov: MAGDALENE NEGRETE APRN 04/09/20 Ciprofloxacin Hcl (CIPROFLOXACIN HCL) 500 Mg Tablet 500 MG PO BID for COLITIS for 10 Days, #20 TAB 0 Refills Prov: MAGDALENE NEGRETE APRN 04/09/20 Problem Qualifiers Additional Impression: Diarrhea Diarrhea type: unspecified type Qualified Codes: R19.7 - Diarrhea, unspecified MAGDALENE NEGRETE APRN Apr 09, 2020 20:17
[2020-04-09] MEDS ORDERED: CIPROFLOXACIN 400MG PREMIX 200 ML IV ONE (20:30)
[2020-04-09] MEDS ORDERED: METR500T PO (21:50)
[2020-04-09] MEDS ORDERED: CIPR500T PO (21:50)
== END 2020-04-09 21:55 | disposition home or self-care (01) ==
LOC: ER 18:23
DX: K52.9 Noninfective gastroenteritis and colitis, unspecified (principal); Z87.440 Personal history of urinary (tract) infections; Z90.49 Acquired absence of other specified parts of digestive tract; Z88.1 Allergy status to other antibiotic agents; Z88.8 Allergy status to other drugs, medicaments and biological substances
CPT/HCPCS: 36415; 74177; 80053; 81001; 81025; 83605; 83690; 85025; 96361; 96365; 99285; J0744; J3490; J7030; Q9967; 96368